=== PATIENT | female | born 1995 | race Caucasian/White ===

== ENCOUNTER 2018-03-11 20:03 | Emergency (ER) | payer SELFPAY ==
[2018-03-11 20:04] VITALS: BP 107/66; PULSE 83; RESP 14; TEMP 36.9; O2SAT 98; BMI 33.5
--- NOTE | 2018-03-11 20:27 | RAD_ITS ---
STUDY: X-RAY - RIGHT FOOT CLINICAL: Female, 22 years old. Something heavy fell on right foot. TECHNIQUE: 3 view(s) of the foot. COMPARISON: None. FINDINGS: Normal talus, calcaneus, and tarsal bones. Normal visualized subtalar, talonavicular, calcaneocuboid, tarsal and tarsometatarsal articulations. Normal metatarsi. Normal metatarsophalangeal joint of the great toe. Normal interphalangeal joint of the great toe. Normal phalanges of the great toe. Normal second through fifth metatarsophalangeal joints. Normal interphalangeal joints and phalanges of the lesser toes. The soft tissue structures are unremarkable. RAD/Foot min 3 Views IMPRESSION: No acute osseous injury. Electronically Signed: Alejandra Salinas MD at 20:58 EDT Tel , Service support ,
--- NOTE | 2018-03-11 20:28 | ED.VISSUMM ---
- ER Visit Summary Date of Service: 03/11/18 Chief Complaint: Right foot, right middle finger injury History of Present Illness: The patient is a 22 F injury right middle finger and right foot at 6:40 PM. States was putting antique bed together when her finger got stuck, this fell down hitting the top of her right foot. Swelling. No anticoagulation medicines. States left foot fracture at the age of 14 with no surgical intervention. No history of gastric ulcers or kidney injuries. No medications taken prior to arrival. Physical Examination: General: Alert and oriented ?3, no acute distress HEENT: Normocephalic, atraumatic. Moist mucosa membranes Neck: supple, nontender. Cardiovascular: Regular rate and rhythm, no murmurs Respiratory: Normal breath sounds, symmetric, no distress Abdomen: Soft, nontender, nondistended Extremities: Right upper extremity: Right middle finger there is no swelling or deformities. There was positive valgus stress at the DIP. Skin intact. Right lower extremity: No ankle tenderness. There is swelling and pain to dorsal foot distally. There was 25% subungual hematoma the great toe. There is no deformities. Skin intact. Neuro: no focal neurological deficits. Test Results: X-ray right foot and right middle finger negative for fracture dislocation Emergency Department Course and Treatment: Patient ice placed on the foot, Motrin started. X-rays of foot and finger negative for fracture or dislocation. Rice therapy discussed. Alvin wrap provided for the foot along with postop shoe. She requested crutches. Also finger splint to the finger. She will continue Motrin. She will follow-up with her PCP. All questions were answered. Treatment Plan: [] Disposition: Discharge Impression: 1. Right foot contusion 2. Right middle finger sprain This note was generated with [employer] dictation software. It may contain incorrect words, spelling, and punctuation that were not noted in review of the chart prior to signing ED Disposition - Plan for ED Patient: Disposition: Home or Assisted Living Chief Complaint: Upper Extremity Injury Diagnosis: Contusion of foot, right, Sprain of right middle finger Instructions: ED Contusion Foot, ED Sprain Finger Prescriptions: Ibuprofen 600 mg PO 4X/DAY PRN #20 tablet PRN Reason: Pain Referrals: Juan Campos MD [Primary Care Provider] - 5-7 Days
--- NOTE | 2018-03-11 20:30 | RAD_ITS ---
STUDY: X-RAY - RIGHT HAND, ATTENTION THIRD FINGER REASON FOR EXAM: Female, 22 years old. Caught third digit and something this morning as it was falling. TECHNIQUE: 3 view(s) of the finger were obtained. COMPARISON: None. FINDINGS: Normal metacarpal head. Normal metacarpophalangeal joint. Normal proximal phalanx. Normal middle phalanx. Normal distal phalanx. Normal proximal interphalangeal joint. Normal distal interphalangeal joint. RAD/Finger(s) Min 2 Views IMPRESSION: No acute osseous injury. Electronically Signed: Alejandra Salinas MD at 21:00 EDT Tel , Service support ,
[2018-03-11] MEDS: Ibuprofen 600 MG Tablet PO (20:40)
[2018-03-11 22:16] VITALS: BP 90/49; PULSE 73; RESP 18; O2SAT 99
== END 2018-03-11 22:17 | disposition home or self-care (01) ==
PROVIDERS: Emergency Provider Emergency Medicine; Family Provider Family Medicine; PCP Family Medicine
DX: S90.31XA Contusion of right foot, initial encounter (principal); S63.612A Unspecified sprain of right middle finger, initial encounter; W23.0XXA Caught, crushed, jammed, or pinched between moving objects, initial encounter; W20.8XXA Other cause of strike by thrown, projected or falling object, initial encounter; Y93.9 Activity, unspecified; Y92.9 Unspecified place or not applicable; Y99.9 Unspecified external cause status; K21.9 Gastro-esophageal reflux disease without esophagitis; M54.9 Dorsalgia, unspecified; Z72.0 Tobacco use
CPT/HCPCS: 73140; 73630; 99285

== ENCOUNTER 2018-05-31 23:42 | Emergency (ER) | payer MEDICAID, SELFPAY ==
[2018-05-31 23:44] VITALS: BP 141/93; PULSE 92; RESP 20; TEMP 36.7; O2SAT 97; BMI 39.1
[2018-06-01 00:29] LABS: Mucous, Urine 0 SEEN /hpf (<or=2+)
[2018-06-01 00:34] LABS: Color, Urine Yellow (Yellow); Glucose, Dipstick Normal (Normal); Ketone-Dipstick Negative (Negative); Leukocyte Esterase-Dipstick 25 /ul (Negative); Nitrite-Dipstick Negative (Negative); Occult Blood-Urine 150 /ul (Negative); Protein-Dipstick 15 mg/dl (Negative); Specific Gravity, Urine 1.025 (1.002-1.030); Urine Bilirubin Dipstick Negative (Negative); Urine Clarity Sl. Cloudy (Clear); Urine Urobilinogen Normal (Normal)
[2018-06-01] MEDS: Ketorolac 30 MG/ML Syringe IV (00:55)
[2018-06-01] MEDS: Metoclopramide 10 MG/2 ML Vial IV (00:55)
[2018-06-01] MEDS: 0.9% Normal Saline 1,000 ML 1000 ML IV (00:55)
[2018-06-01 01:06] LABS: Bacteria 2+ /hpf (None Seen); Red Blood Cells-Urine 0-5 SEEN /hpf (0-5); Squamous Epithelial Cells - UA 0-5 SEEN /hpf (5-10); White Blood Cells 0-5 SEEN /hpf (0-5)
[2018-06-01 01:09] LABS: Absolute Lymphocyte Count 5.43 X10^3/ul (0.83-4.51); Basophil# 0.03 X10^3/uL; Basophil% 0.2 % (0-1); Eosinophils% 1.6 % (0-5); Hematocrit 35.6 % (37-47); Hemoglobin 11.5 g/dl (12.0-15.0); Lymphocyte # 5.43 X10^3/ul (4.0); Lymphocyte % 43.4 % (19-41); Mean Corp Hgb Conc 32.3 g/gl (32-36); Mean Corpuscular Hgb 27.3 pg (27.0-32.0); Mean Corpuscular Volume 84.4 fL (81-99); Mean Platelet Vol. 10.3 fl (6.2-12.0); Monocyte# 0.84 X10^3/uL; Monocyte% 6.7 % (0-10); Neutrophil # 5.98 X10^3/uL (2.7-7.7); Neutrophil % 47.9 % (47-70); Platelet Count 341 K/mm3 (150-450); RBC Distribution Width CV 15.8 % (11.6-14.6); RBC Distribution Width SD 48.6 fl (35.1-43.9); Red Blood Count 4.22 M/mm3 (4.2-5.4); White Blood Count 12.5 K/mm3 (4.4-11.0)
[2018-06-01 01:10] LABS: Differential Indicated SCAN CRITERIA MET; POSITIVE COUNT NO; POSITIVE DIFFERENTIAL YES; POSITIVE MORPHOLOGY NO
--- NOTE | 2018-06-01 01:16 | ED.RN ---
PT GOT UP OOB AND REMOVED IV FROM LEFT HAND AND DRESSED IN STREET CLOTHES I HAVE TO LEAVE MY SON FELL OUT OF HIS BED PT LEFT [facility].
[2018-06-01 01:18] LABS: ALB/GLOB Ratio 0.9 RATIO (0.9-2.4); AST(SGOT) 24 U/L (15-37); Alanine Aminotransfer ALT/SGPT 25 U/L (13-56); Albumin, Serum 3.9 g/dL (3.2-5.0); Alkaline Phosphatase 137 U/L (45-117); Anion Gap 8 (5-15); BUN 16 mg/dL (7-18); BUN/Creat Ratio 18.1 RATIO (10-20); Calcium,Total 8.8 mg/dL (8.5-10.1); Chloride 106 mmol/L (98-107); Creatinine, Serum 0.88 mg/dL (0.55-1.02); EST Glomerular Filtration Rate 83 mL/min (>60); Est Glom Filt Rate - Afr Amer 101 mL/min (>60); Estimated Creatinine Clearance 92.28 ml/min; Globulin 4.4 g/dL (2.2-4.2); Glucose 86 mg/dL (74-106); Lipase 119 U/L (73-393); Potassium 3.8 mmol/L (3.5-5.1); Protein, Total 8.3 g/dL (6.4-8.2); Sodium Level 139 mmol/L (136-145)
[2018-06-01 01:20] LABS: Reactive Lymphocyte 1+
[2018-06-01 01:23] LABS: Pregnancy, Serum, hCG Quali. NEGATIVE Negative (0-9 Nonpreg)
--- NOTE | 2018-06-01 05:11 | ED.DCSUM_ITS ---
- ER Visit Summary Date of Service: 06/01/18 Chief Complaint: Abdominal pain History of Present Illness: The patient is a [address] Jacklyn camargo. She reports that she has abdominal pain began 9 days ago. It is a constant aching pain. Is 10 at 10 in severity. Its increased with movement relieved by nothing. She reports is been nausea and vomited 3-4 times per day. No blood or emesis. She reports that she had 7 episodes of diarrhea today. No blood in her stools. Patient denies sick contacts. Has not been camping out of the country. No possible bad food exposure. Does not drink well water. No recent antibiotic use. On review of systems patient reports that she has sore throats 4 out of 10 severity. However, she states that it only hurts when she drinks. She has a diffuse, throbbing headache that stated 10 severity. She reports she has a history of similar headaches and that it is always there. Physical Examination: Vitals: Stable. Afebrile. General: Well-nourished and well-developed. Head: Normocephalic atraumatic. Neck: Supple, no lymphadenopathy. No JVD. Nontender. Cardiovascular: Regular rate and rhythm. No murmurs. Respiratory: No respiratory distress. Clear to auscultation bilaterally. Abdominal: Soft, mild diffuse tenderness to palpation, nondistended, normal bowel sounds. No guarding, rebound, or peritoneal signs. Back: Nontender. Extremities: Nontender, no edema. Skin: Normal color, no rash. Neurologic: Alert and oriented ?3. Cranial nerves II through XII are intact. Normal strength and sensation. Psych: Normal affect. Test Results: CBC is remarkable for a white count of 12.5 with an H&H of 11.5 a nd 35.6. Leukocytes 43. Chem-7 is normal. LFTs are marked for total protein of 8.3 and globulin 4.4 and alk phos of 137. Lipase is normal. UA is negative. test is negative. Emergency Department Course and Treatment: Patient had an IV placed. She was given Reglan and Toradol IV. Prior to her labs returning she removed her IV and left the department. Treatment Plan: Left prior to completion of treatment. Disposition: Left prior to completion of treatment. Impression: 1. Abdominal pain, uncertain cause. 2. Left prior to completion of treatment. This note was generated with [employer] dictation software. It may contain incorrect words, spelling, and punctuation that were not noted in review of the chart prior to signing ED Disposition - Plan for ED Patient: Disposition: Home or Assisted Living Chief Complaint: General Illness Referrals: Juan Campos MD [Primary Care Provider] -
== END 2018-06-01 01:16 | disposition home or self-care (01) ==
PROVIDERS: Emergency Provider Emergency Medicine; Family Provider Family Medicine; PCP Family Medicine
DX: R10.9 Unspecified abdominal pain (principal); R11.2 Nausea with vomiting, unspecified; R19.7 Diarrhea, unspecified; R05 Cough; R51 Headache; K21.9 Gastro-esophageal reflux disease without esophagitis; Z79.899 Other long term (current) drug therapy; Z87.440 Personal history of urinary (tract) infections
CPT/HCPCS: 36415; 80053; 81001; 83690; 84703; 85025; 96374; 96375; 99285; J7030; A4216

== ENCOUNTER 2019-02-02 19:44 | Emergency (ER) | payer SELFPAY ==
[2019-02-02 19:45] VITALS: BP 126/77; PULSE 112; RESP 16; TEMP 36.7; BMI 37.4
--- NOTE | 2019-02-02 20:24 | ED.DCSUM_ITS ---
History of Present Illness Chief Complaint: Nausea/Vomiting/Diarrhea - Abdominal Pain/Flank Pain Onset: Yesterday Context: Gradual Onset Timing: Intermittent Quality: Aching Location: Diffuse Current Severity: Moderate Maximum Severity: Moderate Worsened by: Food Relieved by: Nothing - Nausea/Vomiting/Emesis GI Symptom: Nausea, Vomiting Onset: Today Quality: Nonbilious. Negative for: Blood streaks, Coffee ground, Hematemesis Severity: Severe - Diarrhea/Melena/Hematochezia GI Symptom: Diarrhea, Hematochezia - small amounts here and there. Negative for: Melena Onset: Yesterday Severity: Severe - diarrhea (not blood) Associated Symptoms: - - decreased UOP. Negative for: Dysuria, Frequency, Hematuria, Urgency Narrative: Patient presents simultaneously with her cousin, with whom she lives, who has the same symptoms. In the last 3 hours, she has developed intermittent, brief, sharp like an electric shock chest pains that are substernal and sometimes to the right. She states her ears are ringing. She denies any earache. She is a history of migraines and she is having a migraine with this, it started before the vomiting and diarrhea. She states she has migraines all the time though, and her preventative medication does not help prevent them. She states she is having lots of abdominal pain everywhere simultaneously. She denies any numbness or tingling or focal weakness in her extremities, but she does feel malaised. Past Medical History - Allergies and Home Meds Allergies/Adverse Reactions: Allergies No Known Allergies Allergy (Verified 05/31/18 23:47) Primary Care Physician: Juan Campos MD [Primary Care Provider] - Lives: With Family Smoking Status: Unknown if ever smoked - Family History Paternal Family History: Reports: - - Several family members with cardiomyopathy. Patient's testing is pending. Review of Systems General: Reports: Fever, Malaise, Subjective. Denies: Chills, Sweats Eyes: Denies: Visual changes - bilaterally, Diplopia ENT: Reports: - - Bilateral tinnitus. Denies: Bilateral ear pain, Rhinorrhea, Sore throat Cardiovascular: Denies: Chest pain, Palpitations Respiratory: Denies: Dyspnea, Cough, Dyspnea on exertion, Orthopnea Gastrointestinal: Reports: Abdominal pain, Nausea, Vomiting, Diarrhea, Hemat ochezia. Denies: Melena Genitourinary: Denies: Dysuria, Hematuria, Frequency Musculoskeletal: Denies: Back pain, Swelling, Extremity Pain Skin: Denies: Rash, Wounds Neurological: Reports: Headache. Denies: Weakness, Numbness Physical Exam Vital Signs/Narrative: Vital Signs Temp Pulse Resp BP 02/02/19 19:45 98.0 F 112 H 16 126/77 H Inital Vital Signs reviewed: Yes General: Well nourished, Well developed, No Acute Distress - well-appearing Head: Normocephalic, Atraumatic Eyes: Perrl, EOMI, - - no photophobia ENT: Moist mucous membranes, No rhinorrhea. Negative for: Dry mucous membranes Neck: Supple, Nontender, No lymphadenopathy Cardiovascular: Regular rate, Regular rhythm, No murmurs Respiratory: No distress, CTA bilaterally, Chest nontender Abdomen: Soft, Nondistended, Normal bowel sounds, Tender - diffusely. Negative for: Guarding, Rebound tenderness Back: Nontender, Normal Inspection Extremities: Nontender, No edema Skin: Normal color, No rash, No Trauma Neurological: Alert, Oriented x3, Cranial nerves II-XII grossly intact, Normal Strength, Normal Sensation Psychological: Normal Mood. Negative for: Normal affect - frustrated Diagnostic/Tx/Re-eval Laboratory Tests 02/02/19 02/02/19 02/02/19 Range/Units 21:00 21:00 21:00 WBC 9.2 (4.4-11.0) K/mm3 RBC 4.01 L (4.2-5.4) M/mm3 Hgb 11.2 L (12.0-15.0) g/dL Hct 34.8 L (37-47) % MCV 86.8 (81-99) fL MCH 27.9 (27.0-32.0) pg MCHC 32.2 (32-36) g/dL RDW Std Deviation 47.9 H (35.1-43.9) fl RDW Coeff of Alvarado 15.1 H (11.6-14.6) % Plt Count 245 (150-450) K/mm3 MPV 10.5 (6.2-12.0) fl Immature Gran % (Auto) 0.200 (0.0-0.9) % Neut % (Auto) 74.0 H (47-70) % Lymph % (Auto) 16.6 L (19-41) % [place] % (Auto) 8.1 (0-10) % Eos % (Auto) 0.8 (0-5) % Baso % (Auto) 0.3 (0-1) % Absolute Neuts (auto) 6.8 (2.0-7.7) X10^3/uL Absolute Lymphs (auto) 1.53 (0.83-4.51) X10^3/uL Nucleated RBC % 0 (0-5) % Sodium 139 (136-145) mmol/L Potassium 3.4 L (3.5-5.1) mmol/L Chloride 108 H (98-107) mmol/L Carbon Dioxide 26.0 (21.0-32.0) mmol/L Anion Gap 5 (5-15) BUN 10 (7-18) mg/dL Creatinine 0.80 (0.55-1.02) mg/dL Estim Creat Clear Calc 108.44 ml/min Est GFR (MDRD) Af Amer 113 (>60) mL/min Est GFR (MDRD) Non-Af 93 (>60) mL/min BUN/Creatinine Ratio 12.6 (10-20) RATIO Glucose 86 (74-106) mg/dL Calcium 8.4 L (8.5-10.1) mg/dL Total Bilirubin 0.50 (0.20-1.00) mg/dL AST 16 (15-37) U/L ALT 23 (13-56) U/L Alkaline Phosphatase 130 H (45-117) U/L Total Protein 7.5 (6.4-8.2) g/dL Albumin 3.4 (3.2-5.0) g/dL Globulin 4.1 (2.2-4.2) g/dL Albumin/Globulin Ratio 0.8 L (0.9-2.4) RATIO Serum , Qual NEGATIVE Negative - Medical Decision Making Patient is treated with IV fluids, Phenergan, Toradol. On reevaluation she is feeling much better her migraines and was completely gone. She still had some residual chest discomfort but now that her nausea is better, she is given a GI cocktail which helped with that. I believe this is noncardiac chest pain, it is certainly not classic for angina, and started after all of the vomiting she has been having. She was not able to have diarrhea in the emergency department for an enteric pathogen panel given that she states she is having small amount of blood. I suspect she has a virus given that her roommate has the same symptoms, and she should follow-up if she has persistent bright red blood per rectum. She is not anemic at this time, does not require admission for this, she is hemodynamically clinically improved/stable to be discharged with a prescription for Phenergan. ED Disposition - Plan for ED Patient: Disposition: Home or Assisted Living Diagnosis: Viral gastroenteritis, Migraine headache Instructions: GASTROENTERITIS, Viral (4y-Adult) Prescriptions: proMETHazine tablet [Phenergan] 25 mg PO Q6H PRN PRN #10 tab PRN Reason: Nausea Prescription Printed Referrals: Juan Campos MD [Primary Care Provider] - 3-5 Days if not improving
[2019-02-02] MEDS: proMETHazine 25 MG/ML Syringe 12.5 MG IV (20:51)
[2019-02-02] MEDS: Ketorolac 30 MG/ML Syringe IV (20:51)
[2019-02-02] MEDS: 0.9% Normal Saline 1,000 ML 999 ML IV (20:51)
[2019-02-02 21:10] LABS: Absolute Lymphocyte Count 1.53 X10^3/uL (0.83-4.51); Absolute Neutrophil Count 6.8 X10^3/uL (2.0-7.7); Basophil# 0.03 X10^3/uL; Basophil% 0.3 % (0-1); Eosinophil# 0.07 X10^3/uL; Eosinophils% 0.8 % (0-5); Hematocrit 34.8 % (37-47); Hemoglobin 11.2 g/dL (12.0-15.0); Lymphocyte # 1.53 X10^3/ul (4.0); Lymphocyte % 16.6 % (19-41); Mean Corp Hgb Conc 32.2 g/dL (32-36); Mean Corpuscular Hgb 27.9 pg (27.0-32.0); Mean Corpuscular Volume 86.8 fL (81-99); Mean Platelet Vol. 10.5 fl (6.2-12.0); Monocyte# 0.75 X10^3/uL; Monocyte% 8.1 % (0-10); NRBC Flagged by Analyzer 0 % (0-5); Neutrophil # 6.83 X10^3/uL (2.7-7.7); Platelet Count 245 K/mm3 (150-450); RBC Distribution Width CV 15.1 % (11.6-14.6); RBC Distribution Width SD 47.9 fl (35.1-43.9); Red Blood Count 4.01 M/mm3 (4.2-5.4); White Blood Count 9.2 K/mm3 (4.4-11.0)
[2019-02-02 21:26] LABS: ALB/GLOB Ratio 0.8 RATIO (0.9-2.4); AST(SGOT) 16 U/L (15-37); Alanine Aminotransfer ALT/SGPT 23 U/L (13-56); Albumin, Serum 3.4 g/dL (3.2-5.0); Alkaline Phosphatase 130 U/L (45-117); Anion Gap 5 (5-15); BUN 10 mg/dL (7-18); BUN/Creat Ratio 12.6 RATIO (10-20); Calcium,Total 8.4 mg/dL (8.5-10.1); Chloride 108 mmol/L (98-107); EST Glomerular Filtration Rate 93 mL/min (>60); Est Glom Filt Rate - Afr Amer 113 mL/min (>60); Estimated Creatinine Clearance 108.44 ml/min; Globulin 4.1 g/dL (2.2-4.2); Glucose 86 mg/dL (74-106); Potassium 3.4 mmol/L (3.5-5.1); Protein, Total 7.5 g/dL (6.4-8.2); Sodium Level 139 mmol/L (136-145)
[2019-02-02 21:36] LABS: Internal QC Validated? YES +Cl - CLEAR BKGD; Pregnancy, Serum, hCG Quali. NEGATIVE Negative
[2019-02-02 21:54] VITALS: BP 97/49; PULSE 99; RESP 14; O2SAT 97
[2019-02-02] MEDS: Mag Hydrox/Al Hydrox/Simeth 30 ML UDC PO (21:56)
== END 2019-02-02 22:01 | disposition home or self-care (01) ==
PROVIDERS: Emergency Provider Emergency Medicine; Family Provider Family Medicine; PCP Family Medicine
DX: A08.4 Viral intestinal infection, unspecified (principal); G43.909 Migraine, unspecified, not intractable, without status migrainosus; R07.9 Chest pain, unspecified; Z79.899 Other long term (current) drug therapy
CPT/HCPCS: 80053; 84703; 85025; 96374; 96375; 99285

== ENCOUNTER → 2019-12-15 17:44 | Outpatient (CLI) | payer MEDICAID, SELFPAY ==
[2019-12-10 16:45] VITALS: BMI 37.4
== END ==
PROVIDERS: PCP Family Medicine; Visit Provider Physician Assistant
DX: Z20.828 Contact with and (suspected) exposure to other viral communicable diseases (principal)
CPT/HCPCS: 87635; G2023; U0003

== ENCOUNTER 2020-01-18 19:22 | Emergency (ER) | payer MEDICAID, SELFPAY ==
[2019-12-10 16:45] VITALS: BMI 37.4
[2020-01-18 19:22] VITALS: BP 146/112; PULSE 89; RESP 16; TEMP 36.8; O2SAT 97; BMI 37.2
--- NOTE | 2020-01-18 19:25 | RAD_ITS ---
STUDY: X-RAY - LEFT SHOULDER REASON FOR EXAM: Female, 24 years old. BILATERAL SHOULDER PAIN AFTER FALLING DOWN STEPS TECHNIQUE: 2 view(s) of the shoulder. COMPARISON: None. FINDINGS: Normal glenohumeral articulation. Normal acromioclavicular joint. Normal acromion. Normal humeral head and visualized proximal humerus. The soft tissue structures are unremarkable. Normal visualized pulmonary apex. RAD/Shoulder min 2 Views IMPRESSION: Normal x-ray examination of the shoulder. Electronically Signed: Jose Roberto Holland MD at 20:12 EDT , Service support ,
--- NOTE | 2020-01-18 19:35 | RAD_ITS ---
STUDY: X-RAY - RIGHT CLAVICLE REASON FOR EXAM: Female, 24 years old. BILATERAL SHOULDER PAIN AFTER FALLING DOWN STEPS TECHNIQUE: 2 view(s) of the clavicle. COMPARISON: None. FINDINGS: Normal clavicle. Normal acromioclavicular articulation. Normal visualized sternoclavicular articulation. Normal visualized pulmonary apex. RAD/Clavicle IMPRESSION: Normal x-ray examination of the clavicle. Electronically Signed: Jose Roberto Holland MD at 20:13 EDT , Service support ,
--- NOTE | 2020-01-18 19:37 | RAD_ITS ---
STUDY: X-RAY - RIGHT SHOULDER REASON FOR EXAM: Female, 24 years old. BILATERAL SHOULDER PAIN AFTER FALLING DOWN STEPS TECHNIQUE: 4 view(s) of the shoulder. COMPARISON: None. FINDINGS: Normal glenohumeral articulation. Normal acromioclavicular joint. Normal acromion. Normal humeral head and visualized proximal humerus. The soft tissue structures are unremarkable. Normal visualized pulmonary apex. RAD/Shoulder min 2 Views IMPRESSION: Normal x-ray examination of the shoulder. Electronically Signed: Jose Roberto Holland MD at 20:14 EDT , Service support ,
--- NOTE | 2020-01-18 19:40 | RAD_ITS ---
STUDY: X-RAY - LEFT CLAVICLE REASON FOR EXAM: Female, 24 years old. BILATERAL SHOULDER PAIN AFTER FALLING DOWN STEPS TECHNIQUE: 2 view(s) of the clavicle. COMPARISON: None. FINDINGS: Normal clavicle. Normal acromioclavicular articulation. Normal visualized sternoclavicular articulation. Normal visualized pulmonary apex. RAD/Clavicle IMPRESSION: Normal x-ray examination of the clavicle. Electronically Signed: Jose Roberto Holland MD at 20:11 EDT , Service support ,
--- NOTE | 2020-01-18 19:40 | RAD_ITS ---
STUDY: X-RAY - CERVICAL SPINE REASON FOR EXAM: Female, 24 years old. NECK PAIN AFTER FALLING DOWN STEPS TECHNIQUE: 3 view(s) of the cervical spine were obtained. COMPARISON: None FINDINGS: Normal anterior atlantoaxial articulation. Normal odontoid process. Normal cervical lordosis. Normal vertebral bodies and endplates. Normal disc space heights. Normal visualized intervertebral neuroforamina. The soft tissue structures are unremarkable. RAD/Cerv Spine 2 or 3 Views IMPRESSION: Normal x-ray examination of the visualized cervical spine. Electronically Signed: Jose Roberto Holland MD at 20:01 EDT , Service support ,
--- NOTE | 2020-01-18 22:52 | ED.VISSUMM ---
- ER Visit Summary Date of Service: 01/18/20 Chief Complaint: Fall History of Present Illness: The patient is a 24 F who presents after a fall that occurred 4 days ago. Patient states she was intoxicated and fell down 11 steps. Patient denies any loss of consciousness. Patient has been ambulatory after the fall. Patient describes the pain as aching and burning. Patient states the pain is over the neck, bilateral shoulders, and upper thoracic area. Patient states the pain is worse with certain movements. Patient denies any paresthesias or weakness. Patient does admit to a headache. Physical Examination: Vital signs are stable. Patient is afebrile. Patient is in no acute distress. Musculoskeletal exam reveals tenderness over the lower cervical and upper thoracic paraspinal muscles. There is mild midline tenderness. There is no bony crepitance or step-off. There is some mild tenderness over the scapula bilaterally. There is no edema or ecchymosis. Range of motion was slightly limited in all motions of the cervical spine secondary to pain. Cranial nerves II through XII are intact. Strength is 5/5 bilateral in the upper and lower extremities. There are no sensory deficits noted. Test Results: X-rays of the clavicles and shoulders bilaterally were obtained. There is no acute fracture. These were interpreted by the radiologist and reviewed by myself. X-rays of the cervical spine were obtained. There is no acute fracture. These were also interpreted by the radiologist and reviewed by myself. Emergency Department Course and Treatment: Patient was instructed to continue using ice to the area. Patient was advised of her x-ray findings. Patient was given a prescription for Naprosyn. Patient was instructed to follow-up with her primary care physician in 5 to 7 days. Patient understood and was agreeable with the plan. All questions were answered. Disposition: Discharge home Impression: Acute cervical strain This note was generated with [employer] dictation software. It may contain incorrect words, spelling, and punctuation that were not noted in review of the chart prior to signing ED Disposition - Plan for ED Patient: Disposition: Home or Assisted Living Diagnosis: Acute cervical myofascial strain Instructions: ED Mechanical Fall, ED Sprain Strain Neck Prescriptions: Naproxen [Naprosyn] 500 mg PO BID PRN #20 tab Prescription Printed Referrals: Juan Campos MD [Primary Care Provider] - 5-7 Days
[2020-01-18 23:11] VITALS: BP 142/60; PULSE 80; RESP 18; O2SAT 97
== END 2020-01-18 23:12 | disposition home or self-care (01) ==
PROVIDERS: Emergency Provider Emergency Medicine; PCP Family Medicine
DX: S16.1XXA Strain of muscle, fascia and tendon at neck level, initial encounter (principal); W10.9XXA Fall (on) (from) unspecified stairs and steps, initial encounter; Y93.9 Activity, unspecified; Y92.9 Unspecified place or not applicable; J45.909 Unspecified asthma, uncomplicated; K21.9 Gastro-esophageal reflux disease without esophagitis
CPT/HCPCS: 72040; 73000; 73030; 99282